=== PATIENT | male | born 1965 | race Caucasian/White ===

== ENCOUNTER 2024-03-30 06:54 | Inpatient (IN) | payer BC, SELFPAY ==
[2024-03-30] VITALS (29 sets, daily range): BP systolic 86–143; BP diastolic 58–101; BMI 25.5
--- NOTE | 2024-03-30 04:33 | ED.GENMED ---
History of Present Illness
General
Chief Complaint: Fall
Source: patient
Exam Limitations: none
Time Seen by Provider: 03/30/24 04:14
Nursing documentation reviewed up to this point in time: agreed with
Travel History
Have you had any contact with someone who has COVID-19?: No
Do you have any symptoms of coronavirus? Fever > 100 degrees, chills, cough, shortness of breath, sore throat, loss of taste or smell, muscle aches, or headache?: No
History of Present Illness
History of Present Illness:
This is a 58-year-old gentleman who has history of hypothyroidism maintained on levothyroxine, history of low back pain maintained on gabapentin. Yesterday while participating in roller hockey he states he 'lost an edge' and fell onto his left
lateral side striking his left lateral/posterior rib cage on a board/edge of rink. Injury occurred around 9 PM.
He complains of left lateral to posterior thoracic pain that is worse with deep breath and much worse after lying down to bed tonight and attempting to use his CPAP equipment for obstructive sleep apnea.
He denies abdominal pain. He had no difficulty urinating, denies hematuria, no dizziness nor lightheadedness, no palpitations nor chest pain. He denies neck nor lower back pain, no weakness nor numbness.
He has not taken anything for discomfort.
He denies head injury nor loss of consciousness.
He takes no anticoagulants.
Past History
Past History
ED Past Medical History: Hypothyroidism and Other (Low back pain)
ED Past Surgical History: Orthopedic and Other (hernia)
Social History
Tobacco: Non-smoker
Alcohol: None
Drug: None
Personal:
Living: with family
Employment: Employed
Family History
Family History: Other (Noncontributory)
Phy Exam
Physical Exam
Physical Exam:
TRAUMA EXAM:
VITAL SIGNS: Vital signs reviewed, cooperative
DISTRESS: No active disease
EYES: Pupils reactive, no orbital trauma
NOSE: No deformity or epistaxis
FACE AND SCALP: No scalp or facial trauma, external canals no blood
NECK: Supple nontender
BACK: No midline bony tenderness. Pelvis is stable to compression/nontender.
RESPIRATORY: No distress, mild to moderate tenderness left posterior inferior costal margin. Mildly decreased breath sounds on the left. No respiratory distress. No palpable crepitus.
CARDIAC: No murmur, pulses equal and strong
ABDOMEN: Soft nontender bowel sounds normal
SKIN: Skin intact no bleeding, color normal
EXTREMITIES: Nontender, full range of motion without difficulty nor pain.
NEUROLOGICAL: Alert, oriented, no motor deficits. Gait is steady.
PSYCH: Mood affect normal
Course
Orders/Labs/Results
Orders:
Orders
03/30/24 03:55
Ribs, Left 3 View W/PA Chest CR [CR Ribs-left 3 Vw W/pa Chest] Urgent
Comment:
Reason For Exam: fell, c/o L posterior rib border pain
03/30/24 04:14
Cardiac Monitoring- Treatment ONCE
Urinalysis Reflex To Culture Urgent
03/30/24 04:33
Morphine Sulfate 4 mg IV NOW STA
03/30/24 04:46
Complete Blood Count/With Diff Urgent
Comprehensive Metabolic Panel Urgent
03/30/24 05:05
EKG [Electrocardiogram (*1)] Stat
Reason for Study: Shortness of Breath
03/30/24 05:06
EKG- Treatment ONCE
03/30/24 05:32
Morphine Sulfate 4 mg .ROUTE .STK-MED ONE
03/30/24 05:46
Cr Chest Portable [CR Chest Portable - 1 View] Urgent
Comment:
Reason For Exam: CHEST TUBE PLACEMENT
Reason Study Needs to be Portable: Patient Unstable
03/30/24 06:08
Admit/Transfer Patient As Directed
Co-Sign Provider:
Level of Care: Inpatient admission
Assign to:: IMU- Intermediate Care
Physician / Group: Keith
Diagnosis: Left Pneumothorax, Left Rib Fractures
Reason for Hospitalization: Left Pneumothorax, Left Rib Fractures
Expected length of stay greater than two midnights?: Yes
ELOS- Estimated Length of Stay in days: 3
I certify the patient meets the requirements for IP care: Yes
03/30/24 06:09
Code Status As Directed
Resuscitation Status: Full Code
03/30/24 06:19
HYDROmorphone [Dilaudid] 1 mg IV NOW STA
03/30/24 07:00
Flush (0.9% Sodium Chloride) [Flush (Nss)] See Dose Instructions IV PER PROTOCOL
Abnormal Lab Results
03/30/24
04:46
MCH 31.9 H pg
(27.0-31.0)
MPV 10.7 H fL
(7.4-10.4)
Absolute Neuts (auto) 7.1 H 10^3/uL
(1.4-6.5)
Absolute Monos (auto) 1.0 H 10^3/uL
(0.1-0.6)
Lymphocytes % 14.0 L %
(20.5-51.1)
Monocytes % 10.5 H %
(1.7-9.3)
03/30/24 04:46
03/30/24 04:46
Vital Signs
Initial and Last Documented VS:
Initial Vital Signs
Temp Pulse Resp BP Pulse Ox
98.3 F 77 18 131/90 95
03/30/24 03:07 03/30/24 03:07 03/30/24 03:07 03/30/24 03:07 03/30/24 03:07
Last Documented Vital Signs
Temp Pulse Resp BP Pulse Ox
98.3 F 60 13 112/81 99
03/30/24 03:07 03/30/24 06:00 03/30/24 06:00 03/30/24 05:41 03/30/24 06:00
Procedures
Chest Tube
Indication for procedure:: traumatic pneumothorax on left -left rib fractures
Procedure completed by: myself
Consent form signed: Yes
Anesthesia: 1% Lidocaine
Chest tube placed to: left side
Size of chest tube (cm): 14
Preparation: cleaned with Hibiclens
Chest tube position: fifth interspace
Chest tube sutured to skin?: Yes
Chest tube complications: none
MDM/Problems Addressed
Differential Diagnosis Includes:
Concern for rib fractures on left, concern for pneumothorax.
X-ray ordered from triage which shows several nondisplaced rib fractures left posterior lateral with 50% pneumothorax on the left.
Patient remains hemodynamically stable.
Will check labs, urinalysis and will plan for chest tube insertion on the left.
*Radiology
Radiology exam reviewed: preliminary read by ED provider (Sixth and seventh rib fracture on the left, nondisplaced with 50% pneumothorax on the left.)
*Pulse Oximetry
Patient hypoxic: no
*EKG
Interpreted by ED Provider?: Yes
Interpretation: normal
Comparison EKG: no comparison EKG present
Rate: normal
Rhythm: sinus
Dalton: normal axis
Interval: normal interval
QRS Pattern: normal QRS
Ischemia: no ischemia
*[employer] Supervisor Interpretation
Rate: normal
Interpretation: normal
Rhythm: sinus
*Critical Care Note
Total Time (30-74mins, 75-104mins- exclusive of procedures): Not Applicable
Update Note
Update Note:
Follow-up chest x-ray shows chest tube extending medially which is not an ideal position but lung is inflated and patient feeling markedly improved.
Labs are unremarkable.
Patient admitted to hospitalist service.
ED Attending Note
-
Portions of this chart may have been created with voice recognition software.� Occasional wrong word or��sound alike� substitutions may have occurred due to the inherent limitations of voice recognition software.
Discharge Plan
Departure
Patient Disposition: Admit
Date of Disposition: 03/30/24
Time of Disposition: 05:58
Admit to: Med/Surg
Admit to doctor: Keith
Presentation/result/management discussed w/ accepting MD/DO: Hospitalist
Condition: Fair
Discharge Problem:
Left rib fracture, Pneumothorax on left
Prescriptions:
No Action
levothyroxine 50 mcg Tablet
50 mcg PO DAILY
gabapentin 300 mg Capsule
300 mg PO HS
Referrals:
Gege Carpenter DO [Family Provider] -
Interventions
Interventions:
*Risk Screen - Suicide Last Done: 03/30/24 03:07
*General Assessment Last Done: 03/30/24 03:07
*Neglect/Abuse Screening Last Done: 03/30/24 03:07
ED- Fall Risk Assessment Last Done: 03/30/24 03:07
*ED COVID-19 Vaccine History Last Done: 03/30/24 03:07
ED-Musculoskeletal Assessment Last Done: 03/30/24 04:35
ED- Neurological Assessment Last Done: 03/30/24 04:35
ED-Skin Assessment Last Done: 03/30/24 04:35
Discharge Date and Time
Print Language: ROMANIAN
[2024-03-30] MEDS: MORPHINE SULFATE 4 MG IV (04:45)
[2024-03-30 05:07] LABS: % Basophils 0.4 % (0-2); % Eosinophils 2.1 % (0-6); % Immature Granulocytes 0.3 % (0-0.5); % Monocytes 10.5 % (1.7-9.3); % Neutrophils 72.7 % (42.2-75.2); Absolute Eosinophils 0.2 10^3/uL (0-0.7); Absolute Lymphocytes 1.4 10^3/uL (1.2-3.4); Absolute Neutrophils 7.1 10^3/uL (1.4-6.5); Hematocrit 43.3 % (39.0-52.0); Hemoglobin 15.4 g/dL (13.0-18.0); Mean Corp Hgb Conc. 35.6 g/dL (33.0-37.0); Mean Corpuscular Hgb 31.9 pg (27.0-31.0); Mean Corpuscular Volume 89.6 fL (80.0-94.0); Mean Platelet Volume 10.7 fL (7.4-10.4); Nucleated Red Blood Cells % 0 % (-); Platelet Count 233 10^3/uL (130-400); Red Blood Cell Count 4.83 10^6/uL (4.70-6.10); Red Cell Dist. Width 13.8 % (11.5-14.5); White Blood Cell Count 9.7 10^3/uL (4.8-10.8)
[2024-03-30 05:37] LABS: ALT (SGPT) 25 U/L (0-50); AST (SGOT) 40 U/L (17-59); Alkaline Phosphatase 73 U/L (38-126); Blood Urea Nitrogen 19 mg/dl (9-20); Calcium 9.8 mg/dl (8.4-10.2); Carbon Dioxide 23 mmol/L (22-30); Chloride 103 mmol/L (98-107); Estimated Creatinine Clearance 92 ml/min; Glucose 91 mg/dl (70-99); Potassium 4.1 mmol/L (3.5-5.1); Sodium 138 mmol/L (135-145); Total Bilirubin 0.6 mg/dl (0.2-1.3); eGFR > 60.00
--- NOTE | 2024-03-30 06:14 | HPS.HSE ---
Family Physician
-
Family Physician: Gege Carpenter
Chief Complaint
-
Chest Pain
History of Present Illness
Patient is a 58y M with PMH significant for AZALIA and non-melanoma skin cancer who presents to ED complaining of chest pain. Patient states that he was playing roller hockey this evening when he fell landing on his L chest / back. He had
significant pain at that time, but was able to continue in the game. He continued to have pain throughout the evening. He went to bed, put on his CPAP and slept for about one hour before the pain woke him from sleep. Pain was much more severe
with lying flat, wearing CPAP and taking deep breaths. Patient had no 'SOB' per se, but complained that he could not take a deep, full breath.
No cough, fevers / chills, palpitations, lightheadedness, etc.
Patient has been on CPAP for about 3 months now for AZALIA.
Evaluation in the ED reveals 2-3 left-sided rib fractures by CXR and associated pneumothorax.
Medical History
Past Medical History
Past Medical History: Reports Other
Additional Past Medical History:
AZALIA on CPAP
Non-Melanoma Skin Cancer
Hypothyroidism
Past Surgical History: Reports Other
Additional Past Surgical History:
Mohs Surgery x 2
Left Rotator Cuff Repair
Right Shoulder Labrum Repair
Hernia Repair x 2
Social History
Tobacco: Non-smoker
Alcohol: Occasional
Drug: None
Personal:
Living: With Family
Family History
Family History: Not pertinent
Allergies / Home Medications
Allergies reflects when Allergies were last updated in [facility].
Home Medications with original date entered in [facility]
Allergy/Medication List:
Allergies
Allergy/AdvReac Type Severity Reaction Status Date / Time
penicillin V Allergy Unknown Verified 03/30/24 03:06
Penicillins Allergy Unknown Verified 03/30/24 03:06
Home Medications
gabapentin 300 mg capsule 300 mg PO HS 03/30/24
levothyroxine 50 mcg tablet 50 mcg PO DAILY 03/30/24
Review of Systems
-
History Source: Patient
A 12 point ROS was completed and negative except as noted: Yes
Constitutional: Denies Fever or Chills
EENT: Denies Sore Throat
Respiratory: Reports Trouble Breathing; Denies Cough
Cardiac: Reports Chest Pain; Denies Diaphoresis, Palpitations or Syncope
Abdomen/GI: Denies Abdominal Pain, Nausea, Vomiting or Diarrhea
: Denies Dysuria or Frequency
Neurological: Denies Dizzy or Headache
Psych: Denies Depression or Anxiety
Physical Exam
Vital Signs
Vital Signs
Temp Pulse Resp BP Pulse Ox
98.3 F 60 13 112/81 99
03/30/24 03:07 03/30/24 06:00 03/30/24 06:00 03/30/24 05:41 03/30/24 06:00
Physical Exam
General: Other (58y M in mild distress due to pain.)
HEENT: Moist mucous membranes and PERRLA
Respiratory: Other (Lungs are clear. L chest tube is in place connected to Pleurovac.)
Cardiac: S1/S2 and Regular Rhythm; No Murmur
GI: Soft, Non Tender, Non Distended and Normal Bowel Sounds
Musculoskeletal: No Clubbing, No Cyanosis and No Edema
Neuro: AO x 3
Laboratory Results
-
03/30/24 04:46
03/30/24 04:46
Laboratory Results
Total Bilirubin 0.6 mg/dl (0.2-1.3) 03/30/24 04:46
AST 40 U/L (17-59) 03/30/24 04:46
ALT 25 U/L (0-50) 03/30/24 04:46
Alkaline Phosphatase 73 U/L (38-126) 03/30/24 04:46
Impression/Plan
-
A/P: Patient is a 58y M with PMH significant for AZALIA and hypothyroidism who presents to ED complaining of chest pain s/p fall last PM.
Left Rib Fractures s/p Fall
Left Pneumothorax secondary to the above
- Admit for further evaluation and treatment.
- Chest tube placed in the ED - follow-up repeat CXR.
- Pulmonary evaluation for additional recommendations / tube management.
- Pain control / supportive care for rib fractures.
- Chest CT for further evaluation of injuries.
- Follow for any new / worsening symptoms.
- Follow serial CXR.
- Patient is not hypoxemic.
AZALIA
- Hold CPAP given pneumothorax.
Hypothyroidism
- Stable. Continue T4 supplementation.
Chronic Back Pain
- Stable. Continue gabapentin.
DVT Prophylaxis: SCDs
Code Status: Full
[2024-03-30] MEDS: FLUSH (NSS) 1 FLUSH IV (06:29)
[2024-03-30] MEDS: DILAUDID 1 MG IV (06:30)
[2024-03-30 07:13] LABS: INR 1.07; PT 13.7 Sec (11.4-14.6)
[2024-03-30 07:14] LABS: APTT 33.4 Sec (23.4-35.0)
--- NOTE | 2024-03-30 08:22 | W.PN.HOSP.TC ---
Today's Communication/Plan
-
Chest tube to wall suction
Pain control
Serial imaging including pending CT scan of the chest.
Assessment / Plan
Assessment / Plan
Impression:
Patient is a 58y M with PMH significant for AZALIA and hypothyroidism who presents to ED complaining of chest pain s/p fall last PM.
Left-sided rib fractures secondary to mechanical trauma
Left traumatic pneumothorax secondary to above
Conditions prior to admission:
Obstructive sleep apnea on CPAP at home
Hypothyroidism
Chronic back pain
Plan:
Left rib fracture status post fall
Left traumatic pneumothorax.
Patient is not hypoxemic
Chest tube placed in ED and currently on wall suction.
Pulmonary consultation appreciated.
Chest CT for further evaluation of injuries.
Pain control including Tylenol standing dose, IV hydromorphone/IV Toradol for breakthrough pain.
Follow-up serial chest x-ray
AZALIA
- Hold CPAP given pneumothorax.
Hypothyroidism
- Stable. Continue T4 supplementation.
Chronic Back Pain
- Stable. Continue gabapentin.
DVT Prophylaxis: SCDs
Code Status: Full
Anticipated Discharge: > 48 hours
Subjective/Interval History
-
Date of Service: March 30, 2024
Objective Data
-
Labs:
Laboratory Results
03/30/24 03/30/24
04:46 06:39
WBC 9.7
Hgb 15.4
Hct 43.3
Plt Count 233
PT 13.7
INR 1.07
APTT 33.4
Sodium 138
Potassium 4.1
Chloride 103
Carbon Dioxide 23
BUN 19
Creatinine 0.8
Glucose 91
Calcium 9.8
Total Bilirubin 0.6
AST 40
ALT 25
Alkaline Phosphatase 73
Vital Signs:
Vital Signs
Temp Pulse Resp BP Pulse Ox
98.3 F 65 8 111/77 98
03/30/24 03:07 03/30/24 07:00 03/30/24 07:00 03/30/24 07:00 03/30/24 07:00
Physical Exam
-
General: Well Developed and No Apparent Distress
HEENT: Normocephalic, Atraumatic and Moist Mucous Membranes
Respiratory: Clear to Auscultation and Chest Tubes (left chest tube in place)
Cardiac: Regular Rhythm and S1/S2; Negative Murmur, Rub or Gallop
GI: Soft, Nontender, Nondistended and Normal Bowel Sounds; Negative Organomegaly
Rectal: Deferred by Provider
Musculoskeletal: No Clubbing, No Cyanosis and No Edema
Skin: Negative Rash
Neuro: Awake, Alert, Oriented and Nonfocal/Grossly Intact
[2024-03-30] MEDS: TYLENOL 1000 MG PO ×3 (08:41→21:11)
[2024-03-30] MEDS: TORADOL 15 MG IV ×2 (08:41→15:13)
--- NOTE | 2024-03-30 09:30 | CON.PUL ---
Consultation
Consultation Request
Date/Time Consultation Requested: 03/30/2024-10 AM
Date/Time Consultation Performed: 03/30/2024-10 AM
Requesting Provider: Hospitalist
Performing Provider: Dr. Pedroza
Reason for Consultation: Pneumothorax
Medical History
-
Chief Complaint: Shortness of breath/pneumothorax
History of Present Illness:
58-year-old male with underlying AZALIA on CPAP somewhat intolerant and nonmelanoma skin cancer who presented with chest pain after playing roller hockey and falling on his left side noted to have rib fractures and pneumothorax requiring chest
tube-pulmonary consulted for pneumothorax/chest tube management 03/30/2024. I am seeing him in the emergency room and is feeling somewhat improved on oxygen after chest tube is in. He continues to have some rib pain. He has mild shortness of breath
but no chest congestion, productive cough or wheezing. He is a lifelong non-smoker and does not carry diagnosis of COPD or asthma. He offers no complaints of abdominal pain, reflux, anorexia, unintentional weight loss, leg swelling or weakness.
He is trying CPAP but has been unable to use because of Mohs surgery on his nose and surgery on his head.
Past Medical History
Past Medical History: None (AZALIA on CPAP. Nonmelanoma skin cancer. Hypothyroid. Left rotator cuff repair. Right shoulder labrum repair. Hernia repair.)
Social History
Tobacco: Non-smoker
Alcohol: Occasional
Drug: None
Personal:
Living: With Family
Occupational Exposures: No known asbestos exposure
Environmental Exposures: No known tuberculosis exposure
Family History
Family History: Reviewed & Not Pertinent
Allergies / Home Medications
Allergies
Allergy/AdvReac Type Severity Reaction Status Date / Time
penicillin V Allergy Unknown Verified 03/30/24 03:06
Penicillins Allergy Unknown Verified 03/30/24 03:06
Home Medications
�Medication �Instructions �Recorded �Confirmed �Last Taken �Type
gabapentin 300 mg capsule 300 mg PO HS 03/30/24 03/30/24 03/29/24 History
levothyroxine 50 mcg tablet 50 mcg PO DAILY 03/30/24 03/30/24 Unknown History
Review of Systems
-
Unable to Obtain full review of systems at this time due to: Other (Per HPI)
Vitals / Labs / Diagnostic Testing
Vital Signs
Temp Pulse Resp BP Pulse Ox
98.3 F 65 8 111/77 98
03/30/24 03:07 03/30/24 07:00 03/30/24 07:00 03/30/24 07:00 03/30/24 07:00
Lab Data
03/30/24 04:46
03/30/24 04:46
Laboratory Results
03/30/24
06:39
PT 13.7
INR 1.07
APTT 33.4
Diagnostic Testing:
Physical Exam
-
Exam:
Well-nourished and well-developed in no apparent distress
HEENT-atraumatic, normocephalic
Neck-supple, no JVD, no bruit
Heart-regular rate and rhythm-no murmurs, rubs or gallops
Chest with diminished breath sounds on the left but overall aeration heard throughout, left chest tube noted
Abdomen-soft, nontender, nondistended, no hepatosplenomegaly
Extremities-no cyanosis, clubbing, edema and good peripheral pulses
Integument-intact, no rashes, lesions or ecchymosis
Neurology-alert and oriented, nonfocal motor and sensory exam
Assessment
-
58-year-old male with underlying AZALIA on CPAP somewhat intolerant and nonmelanoma skin cancer who presented with chest pain after playing roller hockey and falling on his left side noted to have rib fractures and pneumothorax requiring chest
tube-pulmonary consulted for pneumothorax/chest tube management 03/30/2024.
Status post fall with left-sided rib fractures and left pneumothorax
Left pneumothorax-traumatic status post chest tube
Conditions present prior to admission:
AZALIA on CPAP.
Nonmelanoma skin cancer.
Hypothyroid.
Left rotator cuff repair. Right shoulder labrum repair. Hernia repair.
Plan
Respiratory decompensation related to traumatic rib fractures/50% left-sided pneumothorax status post chest tube
Supplemental oxygen-helps with nitrogen washout
Avoid incentive spirometry
Avoid CPAP for now
Aspiration precautions
Nebulizers if needed-currently not bronchospastic
Chest tube placed by ED
CT chest summarized below
Chest tube on wall suction-if chest x-ray stable then moved to waterseal and subsequently clamping with subsequent removal
Consider CT surgical opinion if does not improve
DVT prophylaxis
Nutrition
Early mobilization
Reviewed with ED, nursing, and at the bedside
Patient was last seen by Tricia Dorado NP/ for CPAP compliance-patient has appointment 05/22/2024 at 11:15 AM
Diagnostic data:
Chest x-ray 08/04/2022-NAD
Chest x-ray 03/30/2024-resolved left-sided pneumothorax with chest tube placement
Rib x-rays 03/30/2024-moderate 50% left-sided pneumothorax, mildly displaced left sixth rib fracture
CT chest 03/30/2024-mildly displaced left sixth rib fracture, left-sided chest tube, moderate left upper lobe atelectasis, no pneumothorax, mild bibasilar consolidation, mild left lower hemithorax subcutaneous emphysema
Exercise stress test 09/10/2022-low risk study, normal sinus rhythm,
HST 04/01/2023-AHI-26, desaturation francisco 85%, 2.1 minutes spent less than 88% saturation
HST 08/05/2023-AHI-19.1, desaturation francisco 82%, 1.3 minutes spent less than 90% saturation
Data Reviewed
-
EKG: Report reviewed by me
Radiology: Image personally visualized and interpreted and Report reviewed by me
CT Scan: Image personally visualized and interpreted and Report reviewed by me
Medical Tests (Nuc Med, Echo etc): Report reviewed by me
Labs: Labs reviewed by me
Old Records: Reviewed
Total Time Spent with Patient (in minutes): 65
[2024-03-30] MEDS: SYNTHROID 50 MCG PO (11:55)
[2024-03-30 15:47] LABS: Urine Albumin Negative (Neg - Trace); Urine Bilirubin Negative (Negative); Urine Character Clear (Clear); Urine Color Yellow; Urine Glucose Negative (Negative); Urine Ketone Negative (Negative); Urine Leukocyte Negative (Negative); Urine Nitrite Negative (Negative); Urine Occult Blood Negative (Negative); Urine Specific Gravity 1.015 (<1.030); Urine Urobilinogen Negative (Neg - 1+)
[2024-03-30] MEDS: DILAUDID 0.5 MG IV (18:43)
[2024-03-30] MEDS: NEURONTIN 300 MG PO (21:11)
[2024-03-31] VITALS (7 sets, daily range): BP systolic 113–155; BP diastolic 71–97
[2024-03-31] MEDS: DILAUDID 0.5 MG IV (03:04)
--- NOTE | 2024-03-31 04:36 | PTCARENOTE ---
Patient received in bed upon arrival. Chest tube and settings assessed with day shift nurse after report. Pt denies pain or discomfort. Pleasant and cooperative with care. Oriented to unit. Call argueta within reach.
[2024-03-31] MEDS: TORADOL 15 MG IV ×2 (05:00→20:27)
--- NOTE | 2024-03-31 05:20 | PTCARENOTE ---
Pt called complaining of left sided sharp sudden chest pain after turning to his right side. Denies SOB but says hurts when he breathes in. Both RNs went in together and all Chest tube settings are in place, dressing ,CDI. Pt already had an EKG
scheduled to be done this am so this was performed and with results of Sinus mary ( which he has been) but otherwise normal EKG.. Vitals bp: 128/71, HR 47, resp 20, Temp 97.7, and 02 is 99% on 2 liters. IV Toradol he had ordered PRN was given.
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 No new orders at this time. Pt has repeat CXR scheduled for am.
[2024-03-31] MEDS: TYLENOL 1000 MG PO ×2 (07:44→21:28)
[2024-03-31] MEDS: SYNTHROID 50 MCG PO (07:44)
[2024-03-31 08:30] LABS: Hematocrit 40.6 % (39.0-52.0); Hemoglobin 14.2 g/dL (13.0-18.0); Mean Corpuscular Hgb 31.5 pg (27.0-31.0); Red Blood Cell Count 4.51 10^6/uL (4.70-6.10); Red Cell Dist. Width 13.9 % (11.5-14.5); White Blood Cell Count 5.4 10^3/uL (4.8-10.8)
[2024-03-31 09:20] LABS: Blood Urea Nitrogen 15 mg/dl (9-20); Calcium 8.9 mg/dl (8.4-10.2); Carbon Dioxide 28 mmol/L (22-30); Chloride 103 mmol/L (98-107); Estimated Creatinine Clearance 105 ml/min; Glucose 81 mg/dl (70-99); Potassium 4.6 mmol/L (3.5-5.1); Sodium 137 mmol/L (135-145); eGFR > 60.00
--- NOTE | 2024-03-31 09:22 | W.PN.PUL.V3 ---
Today's Communication / Plan
-
Oxygen as needed-can help with nitrogen washout
Chest x-ray without pneumothorax
Discontinue chest tube wall suction and placed on waterseal
Lovenox added for DVT prophylaxis
Assessment
-
58-year-old male with underlying AZALIA on CPAP somewhat intolerant and nonmelanoma skin cancer who presented with chest pain after playing roller hockey and falling on his left side noted to have rib fractures and pneumothorax requiring chest
tube-pulmonary consulted for pneumothorax/chest tube management 03/30/2024.
Status post fall with left-sided rib fractures and left pneumothorax
Left pneumothorax-traumatic status post chest tube
Conditions present prior to admission:
AZALIA on CPAP.
Nonmelanoma skin cancer.
Hypothyroid.
Left rotator cuff repair. Right shoulder labrum repair. Hernia repair.
Plan
Respiratory decompensation related to traumatic rib fractures/50% left-sided pneumothorax status post chest tube
Supplemental oxygen-helps with nitrogen washout
Avoid incentive spirometry
Avoid CPAP for now
Aspiration precautions
Nebulizers if needed-currently not bronchospastic
Chest tube placed by ED
CT chest summarized below
Chest tube without leak
Chest x-ray 03/31/2024 with no pneumothorax and subcutaneous emphysema resolution and mild lingular atelectasis
Chest tube-place on waterseal and recheck chest x-ray in a.m.
Hopefully can clamp, check chest x-ray and potentially remove chest tube in the next 24-[address] surgical opinion if does not improve
DVT prophylaxis-will add Lovenox
Nutrition
Early mobilization
Reviewed with nursing
Patient was last seen by Tricia Dorado NP/Dr. Crocker for CPAP compliance-patient has appointment 05/22/2024 at 11:15 AM
Diagnostic data:
Chest x-ray 08/04/2022-NAD
Chest x-ray 03/30/2024-resolved left-sided pneumothorax with chest tube placement
Rib x-rays 03/30/2024-moderate 50% left-sided pneumothorax, mildly displaced left sixth rib fracture
CT chest 03/30/2024-mildly displaced left sixth rib fracture, left-sided chest tube, moderate left upper lobe atelectasis, no pneumothorax, mild bibasilar consolidation, mild left lower hemithorax subcutaneous emphysema
Exercise stress test 09/10/2022-low risk study, normal sinus rhythm,
HST 04/01/2023-AHI-26, desaturation francisco 85%, 2.1 minutes spent less than 88% saturation
HST 08/05/2023-AHI-19.1, desaturation francisco 82%, 1.3 minutes spent less than 90% saturation
Subjective Data
-
Date of Service:
Date of Service: March 31, 2024
Chief Complaint: Pulmonary Follow Up, Dyspnea Follow Up and Other (Pneumothorax)
Subjective:
Occasional pleuritic chest pain on the left, no shortness of breath, pain overall controlled, no abdominal pain
Review of Systems
General: Other (Per HPI)
Objective Data
Data Reviewed
Vital Signs / I&O:
Vital Signs
Temp Pulse Resp BP Pulse Ox
98.1 F 51 18 125/82 99
03/31/24 07:54 03/31/24 07:54 03/31/24 07:54 03/31/24 07:54 03/31/24 07:54
Intake and Output
03/30/24 03/31/24 04/01/24
06:59 06:59 06:59
Intake Total 840 / 840
Output Total 500 / 500
Balance 340 / 340
SaO2: 99
Nasal Cannula flow liters per minute: 2
Physical Exam
General: Respiratory Distress (n) and Comfortable
HEENT: Normocephalic, Anicteric and Moist Mucous Membranes
Cardiovascular: Regular Rhythm
Respiratory: Wheeze (n), Crackles (n), Rhonchi (n), Non-Labored Respirations, Accessory Resp Muscle Use (n) and Chest Tube (Left side)
GI: Soft, Non Distended and Non Tender
Neurology: Awake and No Motor Deficits
Skin: Warm, Good Color, Cyanosis (n) and Jaundice (n)
Labs/Micro/Reports
Lab Data
03/31/24 08:05
03/31/24 08:05
[2024-03-31 10:23] LABS: Mean Platelet Volume 9.9 fL (7.4-10.4); Platelet Count 186 10^3/uL (130-400)
[2024-03-31] MEDS: TYLENOL PO (15:05)
--- NOTE | 2024-03-31 16:13 | W.PN.HOSP.TC ---
Today's Communication/Plan
-
Continue chest tube on waterseal
Assessment / Plan
Assessment / Plan
Impression:
Patient is a 58y M with PMH significant for AZALIA and hypothyroidism who presents to ED complaining of chest pain s/p fall last PM.
Left-sided rib fractures secondary to mechanical trauma
Left traumatic pneumothorax secondary to above
Conditions prior to admission:
Obstructive sleep apnea on CPAP at home
Hypothyroidism
Chronic back pain
Plan:
Left rib fracture status post fall
Left traumatic pneumothorax.
Patient is not hypoxemic
Chest tube placed in ED and currently on wall suction.
CT chest in ED: Acute mildly displaced lateral left sixth rib fracture.
Left-sided chest tube moderate left upper lobe atelectasis with no pneumothorax. Mild bibasilar consolidation secondary to atelectasis. Left subcutaneous emphysema
Follow-up chest x-ray on 03/31 with resolution of pneumothorax
Chest tube to waterseal
Follow-up imaging in a.m. with consideration of chest tube withdrawal
Discussed with pulmonary
Pain control including Tylenol standing dose, IV hydromorphone/IV Toradol for breakthrough pain.
Follow-up serial chest x-ray
AZALIA
- Hold CPAP given pneumothorax.
Hypothyroidism
- Stable. Continue T4 supplementation.
Chronic Back Pain
- Stable. Continue gabapentin.
DVT Prophylaxis: SCDs
Code Status: Full
Anticipated Discharge: 24 - 48 hours
Subjective/Interval History
-
Date of Service: March 31, 2024
Objective Data
-
Labs:
Laboratory Results
03/31/24
08:05
WBC 5.4
Hgb 14.2
Hct 40.6
Plt Count 186 D
Sodium 137
Potassium 4.6
Chloride 103
Carbon Dioxide 28
BUN 15
Creatinine 0.7
Glucose 81
Calcium 8.9
Vital Signs:
Vital Signs
Temp Pulse Resp BP Pulse Ox
97.2 F 67 20 155/97 94
03/31/24 15:29 03/31/24 15:29 03/31/24 15:29 03/31/24 15:29 03/31/24 15:29
I&O
03/30/24 03/31/24 04/01/24
06:59 06:59 06:59
Intake Total 840 / 840
Output Total 500 / 500
Balance 340 / 340
Physical Exam
-
General: Well Developed and No Apparent Distress
HEENT: Normocephalic, Atraumatic and Moist Mucous Membranes
Respiratory: Clear to Auscultation, Non Labored Respirations and Chest Tubes (Left chest tube on waterseal); Negative Wheezes
Cardiac: Regular Rhythm and S1/S2; Negative Murmur, Rub or Gallop
GI: Soft, Nontender, Nondistended and Normal Bowel Sounds; Negative Organomegaly
Rectal: Deferred by Provider
Musculoskeletal: No Clubbing, No Cyanosis and No Edema
Skin: Negative Rash
Neuro: Nonfocal/Grossly Intact
--- NOTE | 2024-03-31 16:49 | CM ---
Met with patient at bedside; initial assessment and case management consult completed
Pharmacy verified: [facility] [place]
Injured playing Roller Hockey: Left rib fractures and pneumothorax
Chest tube clamped; weaned off oxygen
Patient and his live in a multilevel home; 2 steps to enter; 12 steps between floors; railings present inside and outside; powder room on the 1st floor; 2nd floor bath has walk-in shower w/seat
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
DME: CPAP
SNF/Rehab/Home Health utilization history: none
Transportation: will provide ride home
Plan: discharge to home; no needs anticipated; but will monitor for discharge needs/services
[2024-03-31] MEDS: FLUSH (NSS) 1 FLUSH IV (20:28)
[2024-03-31] MEDS: NEURONTIN 300 MG PO (21:27)
[2024-04-01] MEDS: TORADOL 15 MG IV ×3 (02:30→17:21)
[2024-04-01] MEDS: FLUSH (NSS) 1 FLUSH IV (02:31)
[2024-04-01 03:05] VITALS: BP 110/80
[2024-04-01] MEDS: TYLENOL 1000 MG PO ×2 (07:32→16:38)
[2024-04-01] MEDS: SYNTHROID 50 MCG PO (07:33)
[2024-04-01 07:35] VITALS: BP 121/78
[2024-04-01 08:00] VITALS: BMI 25.6
--- NOTE | 2024-04-01 10:05 | W.PN.PUL3 ---
Today's Communication / Plan
-
Oxygen as needed-can help with nitrogen washout
Chest x-ray without recurrent pneumothorax
Clamped chest tube this AM --> will repeat CXR at 1700, and if still no recurrent L-sided PTX then I will remove his chest tube and he can go home with follow up with us in the office; patient should also follow up with his PCP.
Assessment
-
58-year-old male with underlying AZALIA on CPAP somewhat intolerant and nonmelanoma skin cancer who presented with chest pain after playing roller hockey and falling on his left side noted to have rib fractures and pneumothorax requiring chest
tube-pulmonary consulted for pneumothorax/chest tube management 03/30/2024.
Status post fall with left-sided rib fractures (6th rib) and left pneumothorax
Left pneumothorax-traumatic status post chest tube
Conditions present prior to admission:
AZALIA on CPAP.
Nonmelanoma skin cancer.
Hypothyroid.
Left rotator cuff repair. Right shoulder labrum repair. Hernia repair.
Plan
Respiratory decompensation related to traumatic rib fractures/50% left-sided pneumothorax status post chest tube
Supplemental oxygen-helps with nitrogen washout
Avoid incentive spirometry
Avoid CPAP for now
Aspiration precautions
Nebulizers if needed-currently not bronchospastic
Chest tube placed by ED
CT chest summarized below
Chest tube without leak
Chest x-ray 03/31/2024 with no pneumothorax and subcutaneous emphysema resolution and mild lingular atelectasis
Chest tube currently on waterseal � I clamped the chest tube this AM and will repeat CXR at 5 PM.
If repeat CXR this evening shows no recurrent left-sided pneumothorax, then I will remove chest tube and patient can go home after that with follow-up in our office.
Consider CT surgical opinion if does not improve
DVT prophylaxis-Lovenox
Nutrition
Early mobilization
Reviewed with nursing
Patient was last seen by Tricia Dorado NP/Dr. Crocker for CPAP compliance-patient has appointment 05/22/2024 at 11:15 AM
Total time spent today was 35 minutes for this encounter. Time includes reviewing laboratory test/imaging results, reviewing pertinent medical records, obtaining and reviewing medical history, performing an appropriate exam, ordering medications,
tests and procedures. Time also includes documentation of this encounter, coordinating patient care and communicating with other healthcare professionals. Total time does not include separately billed tests performed on this date of service.
Diagnostic data:
Chest x-ray 08/04/2022-NAD
Chest x-ray 03/30/2024-resolved left-sided pneumothorax with chest tube placement
Chest x-ray 04/01/2024-No radiographic evidence for recurrent left pneumothorax; Left chest tube remaining in position in the inferior left hemithorax.
Rib x-rays 03/30/2024-moderate 50% left-sided pneumothorax, mildly displaced left sixth rib fracture
CT chest 03/30/2024-mildly displaced left sixth rib fracture, left-sided chest tube, moderate left upper lobe atelectasis, no pneumothorax, mild bibasilar consolidation, mild left lower hemithorax subcutaneous emphysema
Exercise stress test 09/10/2022-low risk study, normal sinus rhythm,
HST 04/01/2023-AHI-26, desaturation francisco 85%, 2.1 minutes spent less than 88% saturation
HST 08/05/2023-AHI-19.1, desaturation francisco 82%, 1.3 minutes spent less than 90% saturation
Subjective Data
-
Date of Service:
Date of Service: April 01, 2024
Chief Complaint: Pulmonary Follow Up, Dyspnea Follow Up and Other (Pneumothorax)
Subjective:
Patient seen and evaluated today at bedside. Left-sided chest tube is on waterseal and there is no airleak. CXR this morning shows no evidence for left-sided pneumothorax. Patient has some discomfort where the chest tube is located otherwise
denies SOB, headache, fevers or chills.
Review of Systems
General: Other (Negative unless mentioned above)
Objective Data
Data Reviewed
Vital Signs / I&O / Oxygen:
Vital Signs
Temp Pulse Resp BP Pulse Ox
97.9 F 64 16 121/78 95
04/01/24 07:35 04/01/24 07:35 04/01/24 07:35 04/01/24 07:35 04/01/24 07:35
Intake and Output
03/31/24 04/01/24 04/02/24
06:59 06:59 06:59
Intake Total 840 / 840 1160 / 1160
Output Total 500 / 500 450 / 450
Balance 340 / 340 710 / 710
SaO2 95
Nasal Cannula flow liters per 2
minute
Physical Exam
General: Respiratory Distress (n) and Comfortable
HEENT: Normocephalic, Anicteric and Moist Mucous Membranes
Cardiovascular: S1-S2 and Peripheral Edema (Negative)
Respiratory: Wheeze (n), Crackles (n), Rhonchi (n), Non-Labored Respirations, Accessory Resp Muscle Use (n) and Chest Tube (Left side)
GI: Soft, Non Distended and Non Tender
Neurology: AO x 3 and Tremors (Negative)
Skin: Warm, Dry, Cyanosis (n) and Jaundice (n)
Labs/Micro/Reports
Lab Data
03/31/24 08:05
03/31/24 08:05
[2024-04-01 11:40] VITALS: BP 139/83
--- NOTE | 2024-04-01 14:05 | W.PN.HOSP.TC ---
Today's Communication/Plan
-
dc home if 5pm CXR stable and then pulmonary will remove CT for DC
Assessment / Plan
Assessment / Plan
Impression:
Patient is a 58y M with PMH significant for AZALIA and hypothyroidism who presents to ED complaining of chest pain s/p fall last PM.
Left-sided rib fractures secondary to mechanical trauma
Left traumatic pneumothorax secondary to above
Conditions prior to admission:
Obstructive sleep apnea on CPAP at home
Hypothyroidism
Chronic back pain
Plan:
Left rib fracture status post fall
Left traumatic pneumothorax.
Patient is not hypoxemic
Chest tube placed in ED
CT chest in ED: Acute mildly displaced lateral left sixth rib fracture.
Left-sided chest tube moderate left upper lobe atelectasis with no pneumothorax. Mild bibasilar consolidation secondary to atelectasis. Left subcutaneous emphysema
Follow-up chest x-ray on 03/31 with resolution of pneumothorax
Chest tube to clamping; if repeat CXR at 5pm stable, he can dc home with PCP and Pulm f/u
DC on Tylenol, oxycodone prn for pain
AZALIA
- Hold CPAP given pneumothorax.
Hypothyroidism
- Stable. Continue T4 supplementation.
Chronic Back Pain
- Stable. Continue gabapentin.
DVT Prophylaxis: SCDs
Code Status: Full
More than 30 minutes spent in discharge including
Final examination of the patient
Summarizing hospital stay
Instructions for continuing care to all relevant caregivers
Preparation of discharge records, prescriptions, and referral forms
Total time spent (in minutes): 41
Anticipated Discharge: Today
Subjective/Interval History
-
Date of Service: April 01, 2024
some discomfort at site of CT otherwise no other complaints
Objective Data
-
Vital Signs:
Vital Signs
Temp Pulse Resp BP Pulse Ox
98.0 F 66 16 139/83 96
04/01/24 11:40 04/01/24 11:40 04/01/24 11:40 04/01/24 11:40 04/01/24 11:40
I&O
03/31/24 04/01/24 04/02/24
06:59 06:59 06:59
Intake Total 840 / 840 1160 / 1160
Output Total 500 / 500 450 / 450
Balance 340 / 340 710 / 710
Physical Exam
-
General: No Apparent Distress
HEENT: Normocephalic and Atraumatic
Respiratory: Chest Tubes (Left); Negative Wheezes or Rales
Genito-urinary: No Costovertebral Tender
Musculoskeletal: No Edema
Neuro: AO x 3
Psych: Calm
Data Reviewed
-
Total Time Spent with Patient (in minutes): 42
Labs: Labs Reviewed by me
--- NOTE | 2024-04-01 14:23 | W.DS.TRANS ---
DC Summary - Trauma Therapist
-
Discharge Instructions:
Discharge Diagnosis/Procedures Left 6th rib fractures with traumatic
pneumothorax
Diet Regular
Activity As tolerated
Bathing Restrictions None
Instructions:
Stand-Alone Forms:
Changes to Home Medications: No
Discharge Medications:
DC Medications w/original date entered in [facility]
gabapentin 300 mg capsule 300 mg PO HS 03/30/24
levothyroxine 50 mcg tablet 50 mcg PO DAILY Thyroid 03/30/24
acetaminophen 500 mg tablet (Tylenol Extra Strength) 1,000 mg (2 x 500 mg) PO TID PRN Pain #100 tabs 04/01/24
oxycodone 5 mg tablet 5 mg PO Q4HPRN PRN mod to severe pain #20 tabs 04/01/24
Home Medication Changes
Pending Results: No
Total time spent discharging patient (in min): 42
--- NOTE | 2024-04-01 14:28 | CM ---
Patient for possible d/c home today, CXR (P).
Plan: home no needs.
[2024-04-01 15:59] VITALS: BP 132/76
--- NOTE | 2024-04-01 18:37 | W.PN.UPDATE ---
Update Note
Progress Note Update
Repeat CXR done, personally reviewed with no repeat/recurrent left-sided pneumothorax. Chest tube removed without incident, with insertion site covered with 4x4 gauze and Tegaderm. Patient tolerated the procedure well without any complications.
Patient stable for discharge home with outpatient pulmonary follow-up. I advised him to not use his CPAP at home for at least another 48-72 hours. He also says that he is having difficulty using his CPAP, where he has excessive aerophagia. We
will need to troubleshoot his CPAP issues in the office. Patient's at bedside and I answered all of the patient and his 's questions.
== END 2024-04-01 18:50 | disposition home or self-care (01) | DRG 200 ==
LOC: 4 WEST ACU 06:54
PROVIDERS: ADMITTING PHYSICIAN Hospitalist; ATTENDING PHYSICIAN Internal Medicine; EMERGENCY PHYSICIAN Emergency Medicine; FAMILY PHYSICIAN Family Medicine; OTHER PHYSICIAN Internal Medicine Critical Care Medicine
PROC: 0W9B30Z Drainage of Left Pleural Cavity with Drainage Device, Percutaneous Approach (ICD-10-PCS; 2024-03-30)
DX: S27.0XXA Traumatic pneumothorax, initial encounter (principal); J98.11 Atelectasis; S22.42XA Multiple fractures of ribs, left side, initial encounter for closed fracture; E03.9 Hypothyroidism, unspecified; W19.XXXA Unspecified fall, initial encounter; Y93.79 Activity, other specified sports and athletics; G47.33 Obstructive sleep apnea (adult) (pediatric); G89.29 Other chronic pain; M54.50 Low back pain, unspecified; M54.6 Pain in thoracic spine; R06.02 Shortness of breath; T79.7XXA Traumatic subcutaneous emphysema, initial encounter; Z79.890 Hormone replacement therapy; Z79.899 Other long term (current) drug therapy; Z85.828 Personal history of other malignant neoplasm of skin
CPT/HCPCS: 32551; 71045; 71046; 71101; 71260; 80048; 80053; 81003; 85025; 85027; 85610; 85730; 93005; 96374; 99285; Q9967

== ENCOUNTER 2024-04-07 22:55 | Emergency (ER) | payer BC, SELFPAY ==
[2024-04-07 23:02] VITALS: BP 158/110
--- NOTE | 2024-04-07 23:27 | ED.GENMED ---
History of Present Illness
General
Chief Complaint: Chest Problem
Time Seen by Provider: 04/07/24 23:27
Travel History
Have you had any contact with someone who has COVID-19?: No
Do you have any symptoms of coronavirus? Fever > 100 degrees, chills, cough, shortness of breath, sore throat, loss of taste or smell, muscle aches, or headache?: No
History of Present Illness
History of Present Illness:
HPI: The patient was seen here 8 days ago with rib fracture and pneumothorax managed with pigtail chest tube. Earlier in the day, the patient was brought in around the job site and a golf cart and had some mild discomfort in the posterior lateral
mid back near where his rib fractures were. More recently, he had increasing pain. He has not been taking NSAIDs. He try to limit the use of Percocet.
EXAM:
GENERAL: Well appearing in no distress
HEENT: Moist oral mucosa
CARDIOVASCULAR: No murmurs, normal heart rate, regular rhythm, No chest wall tenderness
PULMONARY: No respiratory distress, breath sounds are clear and equal
ABDOMEN: Soft with no peritoneal signs, no tenderness
BACK: There is some tenderness in the left lower posterolateral region of the rib cage, some decreased active range of motion due to pain
NEUROLOGIC: Excellent strength all extremities, no coordination deficits
PSYCHIATRIC: Appropriate mental status, normal insight and judgement
EXTREMITIES: Nontender, no edema, moves all extremities equally
SKIN: No rash, no lesions
TIME OF INITIAL ENCOUNTER: 12:15 AM
NUMBER AND COMPLEXITY OF PROBLEMS ADDRESSED AT THE ENCOUNTER
� Chronic conditions affecting care: Recent rib fractures, anemia
� Acute Exacerbation and/or Progression of Chronic Illness: This is an acute worsening of a subacute problem
� Differential Diagnosis includes: Progression of rib fracture, recurrence of pneumothorax, chest wall pain
AMOUNT AND/OR COMPLEXITY OF DATA TO BE REVIEWED AND ANALYZED
� I performed an independent evaluation of and my interpretation is:
EKG:
CT:
X-rays: I personally reviewed chest x-ray and see no sign for pneumothorax in the known rib fractures are not easily seen on today's study
Laboratory Studies:
Other:
� Review of other/old records: I reviewed the last hospitalization when patient had pneumothorax/chest tube
� Clinical information was obtained by an independent historian: I spoke to the at bedside
� Prescriptions/Medications Considered but not given:
� Further testing considered but not performed:
RISK OF COMPLICATIONS AND/OR MORBIDITY OR MORTALITY OF PATIENT MANAGEMENT
� Social determinants of health affecting care: Lives at home
� Discussion with other providers:
� Escalation of care including admission/observation vs risk of discharge considered: The patient presents with worsening pain after riding on a golf cart today but I see no evidence for pneumothorax. We talked about trying
NSAIDs as well. He has been trying to limit the use of narcotic analgesia.
Past History
Past History
ED Past Medical History: Hypothyroidism and Other (Low back pain)
ED Past Surgical History: Orthopedic and Other (hernia)
Social History
Tobacco: Non-smoker
Alcohol: None
Drug: None
Personal:
Living: with family
Employment: Employed
Family History
Family History: Other (Noncontributory)
Phy Exam
Physical Exam
Physical Exam:
See HPI
Course
Orders/Labs/Results
Orders:
Orders
04/07/24 23:03
CR Chest - 2 Views Urgent
Comment:
Reason For Exam: pain, recent rib fx with pneumo
04/08/24 00:37
Ketorolac [Toradol] 30 mg IM NOW STA
Vital Signs
Initial and Last Documented VS:
Initial Vital Signs
Temp Pulse Resp Pulse Ox
98.8 F 83 16 97
04/07/24 23:00 04/07/24 23:00 04/07/24 23:00 04/07/24 23:00
Last Documented Vital Signs
Temp Pulse Resp BP Pulse Ox
98.8 F 78 16 154/102 95
04/07/24 23:00 04/07/24 23:49 04/07/24 23:49 04/07/24 23:49 04/07/24 23:53
*Critical Care Note
Total Time (30-74mins, 75-104mins- exclusive of procedures): Not Applicable
ED Attending Note
-
Portions of this chart may have been created with voice recognition software.� Occasional wrong word or��sound alike� substitutions may have occurred due to the inherent limitations of voice recognition software.
Discharge Plan
Departure
Patient Disposition: Home (Routine Discharge)
Date of Disposition: 04/08/24
Time of Disposition: 00:36
Patient with high blood pressure during this ER visit?: Yes
Discharge Problem:
Acute chest wall pain
Instructions: Rib fractures in adults, BLOOD PRESSURE
Prescriptions:
No Action
levothyroxine 50 mcg Tablet
50 mcg PO DAILY
gabapentin 300 mg Capsule
300 mg PO HS
acetaminophen [Tylenol Extra Strength] 500 mg Tablet
1,000 mg PO TID PRN (Reason: Pain) Qty: 100 0RF
oxycodone 5 mg Tablet
5 mg PO Q4HPRN PRN (Reason: mod to severe pain) Qty: 20 0RF
Referrals:
Gege Carpenter DO [Family Provider] -
Activity Restrictions/Additional Instructions:
We gave a dose of Toradol. I do not see any signs of pneumothorax on your chest x-ray tonight. Please follow-up with your primary care doctor. I recommend 3-4 [id number] ibuprofen (Motrin) every 8 hours with food for a few days. Return
here if worse.
Interventions
Interventions:
*Risk Screen - Suicide Last Done: 04/07/24 23:00
*General Assessment Last Done: 04/07/24 23:00
*Neglect/Abuse Screening Last Done: 04/07/24 23:00
ED- Fall Risk Assessment Last Done: 04/07/24 23:51
*ED COVID-19 Vaccine History Last Done: 04/07/24 23:51
ED- Cardiac Assessment Last Done: 04/07/24 23:53
ED- Pulmonary Assessment Last Done: 04/07/24 23:53
Discharge Date and Time
Print Language: GEORGIAN
[2024-04-07 23:49] VITALS: BP 154/102
[2024-04-08] MEDS: TORADOL 30 MG IM (00:41)
== END 2024-04-08 00:50 | disposition home or self-care (01) ==
LOC: EMR 22:55
PROVIDERS: EMERGENCY PHYSICIAN Emergency Medicine; FAMILY PHYSICIAN Family Medicine
DX: R07.89 Other chest pain (principal); M54.6 Pain in thoracic spine; R03.0 Elevated blood-pressure reading, without diagnosis of hypertension; E03.9 Hypothyroidism, unspecified; Z88.0 Allergy status to penicillin
CPT/HCPCS: 99284; 96372; 71046

== ENCOUNTER → 2024-04-25 14:17 | Outpatient (REF) | payer BC, SELFPAY | LOC: RAD 14:17 | PROVIDERS: ATTENDING PHYSICIAN Nurse Practitioner Family; FAMILY PHYSICIAN Family Medicine | DX: Z87.09 Personal history of other diseases of the respiratory system (principal) | CPT/HCPCS: 71046 ==

== ENCOUNTER → 2024-06-14 11:16 | Outpatient (REF) | payer BC, SELFPAY | LOC: DHSLP 11:16 | PROVIDERS: ATTENDING PHYSICIAN Internal Medicine; FAMILY PHYSICIAN Family Medicine | DX: G47.33 Obstructive sleep apnea (adult) (pediatric) (principal); R09.02 Hypoxemia; G47.52 REM sleep behavior disorder | CPT/HCPCS: 95810 ==

== ENCOUNTER → 2024-07-01 06:31 | Outpatient (REF) | payer BC, SELFPAY | LOC: MRI 06:31 | PROVIDERS: ATTENDING PHYSICIAN Family Medicine | DX: M54.50 Low back pain, unspecified (principal) | CPT/HCPCS: 72148 ==

== ENCOUNTER → 2025-07-11 06:34 | Outpatient (REF) | payer BC, SELFPAY | LOC: HWRAD 06:34 | PROVIDERS: ATTENDING PHYSICIAN Chiropractor; FAMILY PHYSICIAN Family Medicine | DX: M99.02 Segmental and somatic dysfunction of thoracic region (principal); M62.40 Contracture of muscle, unspecified site; M99.03 Segmental and somatic dysfunction of lumbar region; M53.2X7 Spinal instabilities, lumbosacral region | CPT/HCPCS: 72070; 72110 ==